=== PATIENT | male | born 2000 | race Caucasian/White ===

== ENCOUNTER 2019-12-03 20:10 | Emergency (ER) | payer BC ==
[2019-12-03] MEDS ORDERED: Bacitracin OINTMENT* 0.5% 0.5 oz TUBE TOPICAL ONE (21:52)
--- NOTE | 2019-12-03 22:38 | ED ---
Head Injury - HPI Summary HPI Summary: 19 year old male presents with head injury today. He states he is walking and slipped on ice. He states he passed out. States that has been really dizzy afterwards and felt like he was going to pass out. States he's been very nauseous but no vomiting. Denies any neck pain. States he was really out of it but has been improving since. He admits to headache and light sensitivity. Admits difficulty concentrating. is still dizzy when he stands. Has no history of migraines. Has no medical conditions. States left nostril did bleed a little bit. nares is midline. Does have abrasions to face. in pain with eye movements. - History Of Current Complaint Chief Complaint: EDFacialInjury Stated Complaint: FALL/DIZZY PER PT Time Seen by Provider: 12/03/19 21:13 Pain Intensity: 1 - Allergies/Home Medications Allergies/Adverse Reactions: Allergies Allergy/AdvReac Type Severity Reaction Status Date / Time No Known Allergies Allergy Verified 12/03/19 20:23 Home Medications: Home Medications Tenofovir/Emtricitab 200/300 * [Truvada 200/300 mg*] 1 tab PO DAILY 12/03/19 [ History Confirmed 12/03/19] PMH/Surg Hx/FS Hx/Imm Hx Endocrine/Hematology History: Denies: Hx Anticoagulant Therapy Respiratory History: Denies: Hx Asthma Infectious Disease History: No Infectious Disease History: Denies: Traveled Outside the [place] in Last 30 Days - Family History Known Family History: Positive: Non-Contributory - Social History Alcohol Use: None Substance Use Type: Reports: Marijuana Substance Use Comment - Amount & Last Used: ocassionally Smoking Status (MU): Never Smoked Tobacco Review of Systems Negative: Fever Negative: Chest Pain Negative: Shortness Of Breath Positive: Nausea. Negative: Vomiting Positive: Other - abrasions Positive: Headache All Other Systems Reviewed And Are Negative: Yes Physical Exam Triage Information Reviewed: Yes Vital Signs On Initial Exam: Initial Vitals Temp Pulse Resp BP Pulse Ox 98.2 F 66 15 112/74 99 12/03/19 20:21 12/03/19 20:21 12/03/19 20:21 12/03/19 20:21 12/03/19 20:21 Vital Signs Reviewed: Yes Appearance: Positive: Well-Appearing Skin: Positive: Warm, Dry, Other - abrasions under left eye and left nostril Eyes: Positive: Normal, EOMI, [place], Conjunctiva Clear ENT: Positive: Pharynx normal, TMs normal, Other - nares midline, nontender under left eye Neck: Positive: Other: - nontender neck Respiratory/Lung Sounds: Positive: Clear to Auscultation, Breath Sounds Present Cardiovascular: Positive: Normal, RRR Musculoskeletal: Positive: Normal Neurological: Positive: Sensory/Motor Intact, Alert, Oriented to Person Place, Time, CN Intact II-III, Finger to Nose Psychiatric: Positive: Normal - [place] Coma Scale Best Eye Response: 4 - Spontaneous Best Motor Response: 6 - Obeys Commands Best Verbal Response: 5 - Oriented Coma Scale Total: 15 Procedures - Sedation Patient Received Moderate/Deep Sedation with Procedure: No Diagnostics - Vital Signs Vital Signs Temp Pulse Resp BP Pulse Ox 12/03/19 20:21 98.2 F 66 15 112/74 99 - Laboratory Lab Statement: Any lab studies that have been ordered have been reviewed, and results considered in the medical decision making process. - CT brain CT Interpretation Completed By: Radiologist Summary of CT Findings: IMPRESSION: No acute intracranial abnormality. Head Injury Course/Dx Course Of Treatment: 19 year old male presents with head injury today. He states he is walking and slipped on ice. He states he passed out. States that has been really dizzy afterwards and felt like he was going to pass out. States he's been very nauseous but no vomiting. Denies any neck pain. States he was really out of it but has been improving since. He admits to headache and light sensitivity. Admits difficulty concentrating. is still dizzy when he stands. Has no history of migraines. Has no medical conditions. States left nostril did bleed a little bit. nares is midline. Does have abrasions to face. in pain with eye movements. On exam has a normal neuro exam. Nontender orbit or bridge of the nose. nares appears midline. with loss conscious and acting abnormal after the fall got a CT. CT brain is normal. Gave him concussion precautions. told follow up with [facility]. Patient understands and agrees with the plan. - Diagnoses Differential Diagnosis/HQI/PQRI: Concussion Without LOC, Contusion, Laceration Provider Diagnoses: Abrasion, Facial contusion, Head injury Discharge ED - Sign-Out/Discharge Documenting (check all that apply): Patient Departure - Discharge Plan Condition: Good Disposition: HOME Prescriptions: Ondansetron ODT TAB* [Zofran 4 MG Odt TAB*] 4 mg PO Q6H PRN #12 tab.odt PRN Reason: Nausea Patient Education Materials: Concussion (ED) Forms: *School Release Referrals: [facility] - MRKevin [Primary Care Provider] - David Tyson MD [Medical Doctor] - Additional Instructions: Place ice on area as needed Take Tylenol or ibuprofen for headache every 6 hours keep abrasion clean and apply topical antibiotics Modify activities as tolerated a referral was given to ent if needed Follow up with [facility] within 5 days Return to ED if develop any new or worsening symptoms - Billing Disposition and Condition Condition: GOOD Disposition: Home
[2019-12-03 22:58] VITALS: BP 112/62
== END 2019-12-03 22:57 | disposition home or self-care (01) ==
LOC: ED 20:10
DX: S00.83XA Contusion of other part of head, initial encounter (principal); S09.90XA Unspecified injury of head, initial encounter; W00.9XXA Unspecified fall due to ice and snow, initial encounter; Y92.9 Unspecified place or not applicable
CPT/HCPCS: 70450; 99282; A9270-GY